=== PATIENT | female | born 1950 | race African-American/Black ===

== ENCOUNTER 2016-08-22 13:29 | Inpatient (IN) | payer OTHER ==
[~2016-08-22] VITALS: Ht 167.6 cm; Wt 41.8 kg
[2016-08-22] MEDS ORDERED: SOD CHLORIDE 0.9% 500 ML IV STA (16:52)
[2016-08-22 17:39] LABS: ADD SCAN DIFF NO
[2016-08-22 17:41] LABS: ABNORMAL IP MESSAGE 1; BASOPHILS % 0.5 % (0.0-2.0); EOSINOPHILS % 0.1 % (0.0-7.0); HEMATOCRIT 30.4 % (37.0-47.0); HEMOGLOBIN 9.5 g/dl (12.0-16.0); LYMPHOCYTES % 23.2 % (15.0-51.0); MEAN CORPUSCULAR HEMOGLOBIN 28.4 pg (29.0-33.0); MEAN CORPUSCULAR HGB CONC 31.3 g/dl (32.0-37.0); MEAN PLATELET VOLUME 8.8 fl (7.4-10.4); MONOCYTE # 0.5 10^3/ul (0.3-0.9); MONOCYTES % 6.1 % (0.0-11.0); NEUTROPHIL # 5.8 10^3/ul (1.6-7.5); NEUTROPHILS % 67.6 % (39.0-77.0); NUCLEATED RED BLOOD CELLS # 0.2 10^3/ul (0.0-0.0); NUCLEATED RED BLOOD CELLS% 2.6 /100WBC (0.0-0.0); PLATELET COUNT 428 10^3/UL (140-415); RED BLOOD COUNT 3.34 10^6/ul (4.20-5.40); RED CELL DISTRIBUTION WIDTH 25.2 % (11.5-14.5); WHITE BLOOD COUNT 8.5 10^3/ul (4.8-10.8)
--- NOTE | 2016-08-22 17:43 | RADRPT ---
PROCEDURE: Chest x-ray CLINICAL INDICATION: Syncope TECHNIQUE: Chest single view COMPARISON: None FINDINGS: There is complete whiteout of the right hemithorax likely reflecting large right pleural effusion wi th collapse of the right lung. There is mass effect and displacement mediastinal structures to the left. Left lung is normally expanded. Left lung is clear. Left costophrenic angle sharp. Pulmona ry vessels normal in caliber IMPRESSION: 1. Complete opacification right hemithorax likely reflecting large right pleural effusion with angelo apse of the right lung. 2. Left lung normally expanded RPTAT: HH .Sergio Muse MD, MD Date Time Electronically viewed and signed by .Sergio Muse MD, MD on 08/22/2016 17:43 .W/
[2016-08-22 17:51] LABS: INR 0.97; PROTIME 12.9 Sec (12.2-14.2)
[2016-08-22 17:52] LABS: PARTIAL THROMBOPLASTIN TIME 28.6 Sec (25.0-35.0)
[2016-08-22 17:54] LABS: ALBUMIN 3.3 g/dl (3.3-4.9); CHLORIDE 101 mmol/L (97-110)
[2016-08-22 17:55] LABS: POTASSIUM 3.9 mmol/L (3.5-5.1); SODIUM 141 mmol/L (135-144)
[2016-08-22 17:57] LABS: ALBUMIN/GLOBULIN RATIO 0.97; ALKALINE PHOSPHATASE 1040 IU/L (42-121); ANION GAP 18 (8-16); ASPARTATE AMINO TRANSFERASE 48 IU/L (15-46); BILIRUBIN,INDIRECT 0.2 mg/dl (0-1.1); BILIRUBIN,TOTAL 0.2 mg/dl (0.2-1.3); BLOOD UREA NITROGEN 13 mg/dl (7-20); CARBON DIOXIDE 26 mmol/L (21-31); GLUCOSE 90 mg/dl (70-220); TOTAL PROTEIN 6.7 g/dl (6.1-8.1)
[2016-08-22 17:58] LABS: ALANINE AMINOTRANSFERASE 17 IU/L (13-69); CALCIUM 10.4 mg/dl (8.4-10.2)
[2016-08-22 18:12] LABS: TROPONIN-I < 0.012 ng/ml (0.00-0.12)
--- NOTE | 2016-08-22 18:47 | ERA ---
ER Documentation Chief Complaint Date/Time DATE: 08/22/16 TIME: 18:42 Chief Complaint Pt with generalized weakness and decreased appetite 1 month. HPI 65-year-old female with no known past medical history presenting with generalized weakness. She states that over the past month she has felt progressively weaker, where she is unable to get of bed. For the past week she has felt some shortness of breath at rest and has had a productive cough with whitish sputum. She denies any associated fevers, chills, chest pain, hemoptysis, abdominal pain, nausea, vomiting, diarrhea. ROS All systems reviewed and are negative except as per history of present illness. Medications Home Meds No Active Prescriptions or Reported Meds Allergies Allergies: Coded Allergies: No Known Allergy (Unverified , 08/22/16) PMhx/Soc Medical and Surgical Hx: pt denies Medical Hx, pt denies Surgical Hx Hx Alcohol Use: Yes (Quit 1 year ago) Hx Substance Use: No Hx Tobacco Use: No Smoking Status: Former smoker FmHx Family History: No diabetes Physical Exam Vitals Vital Signs Date Time Temp Pulse Resp B/P Pulse Ox O2 Delivery O2 Flow Rate FiO2 08/22/16 20:00 97.9 92 28 128/86 98 Nasal Cannula 3.0 08/22/16 13:42 97.9 98 20 121/81 95 Physical Exam Const: Cachectic, Head: Atraumatic Eyes: Normal Conjunctiva ENT: Normal External Ears, Nose and Mouth. Dry mucous membranes Neck: Full range of motion. No lymphadenopathy. No meningismus. Resp: Clear to auscultation bilaterally, diminished breath sounds on the right, no rales, wheezing, rhonchi Cardio: Regular rate and rhythm, no murmurs Abd: Firm, non tender, non distended. No palpable masses. Normal bowel sounds Skin: No petechiae or rashes Back: No midline or flank tenderness Ext: No cyanosis, or edema. Very thin extremities Neur: Awake and alert and oriented 3, cranial nerves intact, strength and sensations intact in all 4 extremities, however there is poor effort on strength testing Psych: Normal Mood and Affect Result Diagram: 08/22/16 1730 08/22/16 1730 Results 24 hrs Laboratory Tests Test 08/22/16 17:20 08/22/16 17:30 Ammonia < 9umol/l Activated Partial Thromboplast Time 28.6Sec Alanine Aminotransferase (ALT/SGPT) 17IU/L Albumin 3.3g/dl Albumin/Globulin Ratio 0.97 Alkaline Phosphatase 1040IU/L Anion Gap 18 Aspartate Amino Transf (AST/SGOT) 48IU/L Basophils # 0.010^3/ul Basophils % 0.5% Blood Urea Nitrogen 13mg/dl Calcium Level 10.4mg/dl Carbon Dioxide Level 26mmol/L Chloride Level 101mmol/L Creatinine 0.50mg/dl Direct Bilirubin 0.00mg/dl Eosinophils # 0.010^3/ul Eosinophils % 0.1% Globulin 3.40g/dl Glucose Level 90mg/dl Hematocrit 30.4% Hemoglobin 9.5g/dl INR International Normalized Ratio 0.97 Indirect Bilirubin 0.2mg/dl Lymphocytes # 2.010^3/ul Lymphocytes % 23.2% Mean Corpuscular Hemoglobin 28.4pg Mean Corpuscular Hemoglobin Concent 31.3g/dl Mean Corpuscular Volume 91.0fl Mean Platelet Volume 8.8fl Monocytes # 0.510^3/ul Monocytes % 6.1% Neutrophils # 5.810^3/ul Neutrophils % 67.6% Nucleated Red Blood Cells # 0.210^3/ul Nucleated Red Blood Cells % 2.6/100WBC Platelet Count 62035^3/UL Potassium Level 3.9mmol/L Prothrombin Time 12.9Sec Prothrombin Time Ratio 1.0 Red Blood Count 3.3410^6/ul Red Cell Distribution Width 25.2% Sodium Level 141mmol/L Total Bilirubin 0.2mg/dl Total Protein 6.7g/dl Troponin I < 0.012ng/ml White Blood Count 8.510^3/ul Current Medications Medications (Trade) Dose Ordered Sig/Abiel Route PRN Reason Start Time Stop Time Status Last Admin Dose Admin Sodium Chloride (NS) 500 ml @ 500 mls/hr Q1H STAT IV 08/22/16 16:52 08/22/16 17:51 DC 08/22/16 17:45 Ondansetron HCl (Zofran Inj) 4 mg ER BRIDGE PRN IV NAUSEA AND/OR VOMITING 08/22/16 19:30 08/23/16 19:29 Acetaminophen (Tylenol Tab) 650 mg ER BRIDGE PRN PO MILD PAIN/FEVER 08/22/16 19:30 08/23/16 19:29 Procedures/MDM EKG: Rate/Rhythm: Normal sinus rhythm at 90 bpm QRS, ST, T-waves: Right axis deviation, anteroseptal Q waves, No changes consistent w/ acute ischemia Impression: No evidence of ischemia or arrhythmia Chest XRay per Radiology: 1. Complete opacification right hemithorax likely reflecting large right pleural effusion with collapse of the right lung. 2. Left lung normally expanded RPTAT: HH .Sergio Muse MD, MD Date Time Electronically viewed and signed by .Sergio Muse MD, MD on 08/22/2016 17:43 Labs were notable for anemia, elevated platelets, and significantly elevated alkaline phosphatase. Patient's presentation and workup is concerning for right-sided pleural effusion that is possibly related to her metastatic malignancy. She is hemodynamically stable with a normal oxygen saturation on room air. Emergent thoracentesis is not indicated at this time. There is no evidence of fluid overload, acute bacterial infection, or sepsis on my exam. Patient will need drainage of her right pleural effusion and further workup. She is not stable for discharge at this time. I spoke with the patient regarding her results and she agreed with the plan for admission. I will defer further workup to the inpatient team. Accepting Care Team: Current data and ongoing care discussed. Time: Time of admission Primary Provider: Vini Consulting: none Outstanding Data: none Departure Diagnosis: Primary Impression: Acute weakness Additional Impressions: Dyspnea Qualified Code: R06.00 - Dyspnea, unspecified type Pleural effusion on right Anemia Condition: Serious KESHA HEDRICK MD Aug 22, 2016 18:47
[2016-08-22] MEDS ORDERED: ONDANSETRON 4 MG INJ IV PRN ×2 (19:30→21:00)
[2016-08-22] MEDS ORDERED: ACETAMINOPHEN 325 MG TAB PO PRN ×2 (19:30→21:00)
[2016-08-22 20:00] VITALS: TEMP 97.9
[2016-08-22] MEDS ORDERED: morphine 4 MG/ML VIAL IV PRN (21:00)
[2016-08-22 22:10] VITALS: BP 120/75; PULSE 91; RESP 20; BMI 13.5
[2016-08-22 22:15] VITALS: Ht 167.6 cm; Wt 41.8 kg
[2016-08-22 23:02] VITALS: BP 120/75; RESP 20
[2016-08-23 05:42] LABS: ADD SCAN DIFF NO
[2016-08-23 06:13] LABS: ABNORMAL IP MESSAGE 1; BASOPHILS % 0.4 % (0.0-2.0); EOSINOPHILS % 0.1 % (0.0-7.0); HEMATOCRIT 29.4 % (37.0-47.0); HEMOGLOBIN 9.1 g/dl (12.0-16.0); LYMPHOCYTES # 1.6 10^3/ul (0.8-2.9); LYMPHOCYTES % 21.3 % (15.0-51.0); MEAN CORPUSCULAR HEMOGLOBIN 28.3 pg (29.0-33.0); MEAN CORPUSCULAR VOLUME 91.6 fl (82.0-101.0); MEAN PLATELET VOLUME 9.3 fl (7.4-10.4); MONOCYTE # 0.5 10^3/ul (0.3-0.9); MONOCYTES % 6.4 % (0.0-11.0); NEUTROPHIL # 5.2 10^3/ul (1.6-7.5); NUCLEATED RED BLOOD CELLS # 0.2 10^3/ul (0.0-0.0); NUCLEATED RED BLOOD CELLS% 2.5 /100WBC (0.0-0.0); PLATELET COUNT 395 10^3/UL (140-415); RED BLOOD COUNT 3.21 10^6/ul (4.20-5.40); RED CELL DISTRIBUTION WIDTH 25.4 % (11.5-14.5); WHITE BLOOD COUNT 7.5 10^3/ul (4.8-10.8)
[2016-08-23 06:40] LABS: IRON 75 ug/dl (35-150)
[2016-08-23 06:50] LABS: TOTAL IRON BINDING CAPACITY 225 ug/dl (241-421)
[2016-08-23 07:30] LABS: FOLATE 10.6 ng/ml (2.8-20.0)
[2016-08-23 07:42] LABS: POTASSIUM 4.3 mmol/L (3.5-5.1)
[2016-08-23 07:44] LABS: BILIRUBIN,INDIRECT 0.1 mg/dl (0-1.1); BILIRUBIN,TOTAL 0.1 mg/dl (0.2-1.3); CREATININE 0.42 mg/dl (0.44-1.00)
[2016-08-23 07:45] LABS: ALBUMIN/GLOBULIN RATIO 1.03; CALCIUM 9.8 mg/dl (8.4-10.2); TOTAL PROTEIN 5.9 g/dl (6.1-8.1)
[2016-08-23 07:55] VITALS: BP 102/68; RESP 16
--- NOTE | 2016-08-23 07:57 | HP ---
DATE OF ADMISSION: 08/22/2016 CHIEF COMPLAINT: Weakness. HISTORY OF PRESENT ILLNESS: Ms. Syed presents to the emergency room at [facility] with dev eloped worsening weakness which she has been having progressively over the last 1 week or so. She s tates that she had previously been able to walk around the house but over the last week, she has bee n having increasing difficulty getting up, standing up and walking to the bed. Out of bed, she had previously been able to dress and bathe herself, but now requires assistance with these things. Ass ociated with this is difficulty with shortness of breath which she states has been also for approxim ately 1 week. In addition, the patient states that she has been having anorexia and not eating and significant weight loss over the last 6 to 12 months. PAST MEDICAL HISTORY: None known. MEDICATIONS: As an outpatient nil. ALLERGIES: NONE KNOWN. SOCIAL HISTORY: The patient lives at home with her daughter in [place]. Former smoker. Does not drink alcohol, quit approximately 1 year ago. Denies illicit drug use. FAMILY HISTORY: Noncontributory. REVIEW OF SYSTEMS: Five systems reviewed and found not to be revealing other than as given above. PHYSICAL EXAMINATION: VITAL SIGNS: Blood pressure is 120/75, pulse rate 86, respirations 20, temperature is 97.9. GENERAL: Cachectic woman, moderate respiratory distress. HEENT: Normocephalic, atraumatic without scleral icterus, perioral cyanosis. Mucous membrane s are moist. NECK: Soft and supple without masses. No evidence of jugular venous distention or carotid bruits. CHEST: Clear to auscultation and percussion. Diminished breath sounds on the entire right side, re latively clear on the left. HEART: Regular rate and rhythm, S1-S2, no added sounds. ABDOMEN: Soft, nontender. There is a firm right lower quadrant abdominal mass. EXTREMITIES: Without clubbing, cyanosis, or edema. There is moderate leg weakness. SKIN: Without rashes. NEUROLOGIC: Cranial nerves III through XII are intact. Tone, power and coordination intact times b oth arms. There is approximately 4+ to 5- power in both legs. Skin is without rashes. LABORATORY STUDIES: Reveal hemoglobin 9.5 g/dL, white count of 8500, platelets of 428,000. INR is 0.97, sodium 141, potassium 3.9, chloride 101, bicarbonate 26, BUN 13, creatinine 0.5, glucose 90, a lbumin 3.3, total protein 6.7, total calcium 10.4, AST 48, ALT 17, total bilirubin 0.2, alkaline jael sphatase 1040. Chest x-ray reveals a large right-sided pleural effusion. ASSESSMENT AND PLAN: 1. Pulmonary: The patient with large right pleural effusion of unclear etiology, though I suspect malignancy. Plan to obtain a diagnostic and therapeutic thoracentesis. Follow up by CT scan of [address] to further evaluate. 2. Gastrointestinal: Patient with right lower quadrant abdominal mass, unclear etiology, possibly malignant. Await CT scan of abdomen and pelvis to further clarify. 3. Leg weakness, possibly related to anorexia in light of overwhelming Cachexia noted. Will plan t o obtain nutritional industries including iron, B12, folate and dietary evaluation. 4. Prophylaxis with TEDs. Dictated By: EDDIE GARCIA MD RER/NTS Conf#: [id number] DID#: [id number]
[2016-08-23] MEDS: FAMOTIDINE 20 MG TAB PO SCH ×2 (11:00→21:33)
--- NOTE | 2016-08-23 11:02 | PN ---
Date/Time of Note Date/Time of Note DATE: 08/23/16 TIME: 10:49 Assessment/Plan VTE Prophylaxis VTE Prophylaxis Intervention: SCD's Lines/Catheters IV Catheter Type (from Nrs): Saline Lock Assessment/Plan Assessment/Plan 65 yo female with: 1. Large right pleural effusion along with abdominal mass and cachexia and recent significant weight loss concerning for malignant and possibly with underlying mass Continue O2 support for dyspnea. Right thoracentesis, CT Chest/abdo/pelvis pending 2. Right lower quadrant abdominal fullness/mass on exam, unclear etiology, possibly malignant. Follow up CT abdomen and pelvis to further evaluate. 3. Generalized weakness, cachexia. Dietary consult and follow up on iron, B12 , folate levels. Prophylaxis: Pepcid for GI ppx and SCDs for DVT ppx. Disposition: Follow up CT results and pathology from pleural fluid Subjective 24 Hr Interval Summary Free Text/Dictation Patient remains dyspneic with labored breathing and dyspnea with speech, on 2 L NC sating 95% Awaiting thoracentesis, CT C/A/P this AM Exam/Review of Systems Vital Signs Vitals Vital Signs Date Time Temp Pulse Resp B/P Pulse Ox O2 Delivery O2 Flow Rate FiO2 08/23/16 07:55 98.0 88 16 102/68 96 08/22/16 22:10 Nasal Cannula 2.0 Intake and Output 08/22/16 08/22/16 08/23/16 15:00 23:00 07:00 Intake Total 200 ml Balance 200 ml Exam Constitutional: alert, frail, oriented, other (cachectic ) Respiratory: diminished breath sounds (right hemithorax ), labored breathing, other (Left lung clear but decreased breath sounds right hemithorax ) Cardiovascular: nl pulses, other, regular rate and rhythm Gastrointestinal: mass (right LQ fullness ), soft Musculoskeletal: other (cachectic ) Extremities: normal pulses, other (no edema, clubbing or cyanosis ) Neurological: BASKET OPERATOR II-XII intact, lethargic, nl mental status, other ( generalized weakness ) Results Result Diagram: 08/23/16 0436 08/23/16 0436 Results 24 hrs Laboratory Tests Test 08/22/16 17:20 08/22/16 17:30 08/23/16 04:36 08/23/16 04:50 Ammonia < 9 L Activated Partial Thromboplast Time 28.6 Alanine Aminotransferase (ALT/SGPT) 17 22 Albumin 3.3 3.0 L Albumin/Globulin Ratio 0.97 1.03 Alkaline Phosphatase 1040 H 973 H Anion Gap 18 H 16 Aspartate Amino Transf (AST/SGOT) 48 H 47 H Basophils # 0.0 0.0 Basophils % 0.5 0.4 Blood Urea Nitrogen 13 12 Calcium Level 10.4 H 9.8 Carbon Dioxide Level 26 25 Chloride Level 101 103 Creatinine 0.50 0.42 L Direct Bilirubin 0.00 0.00 Eosinophils # 0.0 0.0 Eosinophils % 0.1 0.1 Globulin 3.40 H 2.90 Glucose Level 90 79 Hematocrit 30.4 L 29.4 L Hemoglobin 9.5 L 9.1 L INR International Normalized Ratio 0.97 Indirect Bilirubin 0.2 0.1 Lymphocytes # 2.0 1.6 Lymphocytes % 23.2 21.3 Mean Corpuscular Hemoglobin 28.4 L 28.3 L Mean Corpuscular Hemoglobin Concent 31.3 L 31.0 L Mean Corpuscular Volume 91.0 91.6 Mean Platelet Volume 8.8 9.3 Monocytes # 0.5 0.5 Monocytes % 6.1 6.4 Neutrophils # 5.8 5.2 Neutrophils % 67.6 69.0 Nucleated Red Blood Cells # 0.2 H 0.2 H Nucleated Red Blood Cells % 2.6 H 2.5 H Platelet Count 428 H 395 Potassium Level 3.9 4.3 Prothrombin Time 12.9 Prothrombin Time Ratio 1.0 Red Blood Count 3.34 L 3.21 L Red Cell Distribution Width 25.2 H 25.4 H Sodium Level 141 140 Total Bilirubin 0.2 0.1 L Total Protein 6.7 5.9 L Troponin I < 0.012 White Blood Count 8.5 7.5 Amylase Level 42 Iron Level 75 Lactate Dehydrogenase 753 H Percent Iron Saturation 33 Total Iron Binding Capacity 225 L Folate 10.6 Vitamin B12 Level Pending Medications Medications Current Medications Acetaminophen (Tylenol Tab) 650 mg Q4H PRN PO pain/fever; Start 08/22/16 at 21: 00 Morphine Sulfate (morphine) 4 mg Q4H PRN IV pain; Start 08/22/16 at 21:00 Ondansetron HCl (Zofran Inj) 4 mg Q4H PRN IV nausea; Start 08/22/16 at 21:00 EARLENE LEWIS Aug 23, 2016 10:59
[2016-08-23] MEDS ORDERED: LIDOCAINE 1% (MPF) 5 ML VIAL ONE (12:26)
--- NOTE | 2016-08-23 12:27 | RADRPT ---
PROCEDURE: US guided right thoracentesis. CLINICAL INDICATION: Shortness of breath. Right pleural effusion. TECHNIQUE: Prior to the procedure, informed consent was obtained. The risks, benefits, and alternatives were e xplained to the patient or the patient's family, including but not limited to bleeding, infection, p ain, visceral or vascular damage, shock, pneumothorax, chest tube placement, air embolism, and . The patient or the patient's family understood the risks and the alternatives and wished to proce ed with the study. Informed written consent was obtained. A procedural pause was performed. The patient's name, date of , and procedure to be performed were verified. Ultrasound of the right hemithorax was performed in the axial and sagittal planes. A right pleural e ffusion is noted. Utilizing ultrasound guidance, optimal location for entry to the pleural cavity wa s ascertained. The overlying skin was prepped and draped in the usual sterile fashion. Approximate ly 10 ml of 1% Xylocaine was injected locally for pain control. Using ultrasound guidance, a 5-Fren Yueh catheter was introduced into the right pleural space without difficulty. Fluid was aspirated . COMPARISON: None. FINDINGS: Initial ultrasound demonstrates fluid in the right pleural space. Approximately 1.55 liters of sero us fluid was aspirated and sent to the laboratory. IMPRESSION: 1. Satisfactory ultrasound-guided right thoracentesis. RPTAT: QQ .Ruslan Munoz MD, Date Time Electronically viewed and signed by .Ruslan Munoz MD, on 08/23/2016 12:27 .R/
--- NOTE | 2016-08-23 12:34 | RADRPT ---
PROCEDURE: XR Chest. CLINICAL INDICATION: Shortness of breath. Post right thoracentesis. TECHNIQUE: Single frontal view. COMPARISON: 08/22/2016. FINDINGS: There is a large right pleural effusion, smaller than seen previously. There is aeration of the rig ht upper lung. The left lung is clear. There is shift of the mediastinum to the left. There is no left pleural effusion. The heart size is normal. There is no pneumothorax. IMPRESSION: 1. No pneumothorax following right thoracentesis. 2. Large right pleural effusion which is smaller than seen previously. 3. Aeration of the right upper lung is now visualized. RPTAT: QQ .Ruslan Munoz MD, MD Date Time Electronically viewed and signed by .Ruslan Munoz MD, on 08/23/2016 12:34 .R/
[2016-08-23] MEDS ORDERED: SOD CHLORIDE 0.9% 100 ML ONE (13:05)
[2016-08-23] MEDS ORDERED: IODIXANOL LOCM 100 ML BTL ONE (13:05)
--- NOTE | 2016-08-23 13:54 | RADRPT ---
PROCEDURE: CT chest, abdomen and pelvis with intravenous contrast. CLINICAL INDICATION: Pleural effusion. Weakness. Anorexia. TECHNIQUE: Following intravenous contrast, spiral CT of the chest, abdomen pelvis was performed an d is reconstructed at 2.5 mm contiguous axial intervals from the thoracic inlet to the inferior pubi c rami. Computer reformatted coronal and sagittal images are included. CT D I 5 millicurie Dose 354 millicurie per centimeter COMPARISON: None. FINDINGS: Chest - Noted is a large right pleural effusion with complete collapse of the right middle lobe, the basal s egments of the right lower lobe and the anterior segment of the right upper lobe. There is dense co nsolidation in the non collapsed right lung. Noted is a moderate-sized left pleural effusion with c ompressive atelectasis in the dependent portion of the left lung. There are multiple sub centimeter solid nodules in the left lung, some of which demonstrate calcification. No pneumothorax is seen. No hilar or mediastinal adenopathy or masses present. Thoracic aorta is normal. No pleural mass i s visualized. There is asymmetric enlargement of the right breast with suggestion of a large mass a nd associated skin thickening. No axillary, supraclavicular or internal mammary chain adenopathy is seen. There are diffuse mixed lytic and blastic lesions throughout the spine and ribs. No comprom ise is seen of the vertebral canal. Abdomen and pelvis - The liver is enlarged and demonstrates coarse heterogeneous attenuation throughout the right lobe. This may represent evidence of infiltrating mass. Multiple hepatic cysts are present. No ductal di latation is identified. The portal vein is open. No splenic, adrenal or pancreatic abnormality is identified. No gallstones are seen. The kidneys enhance symmetrically. No hydronephrosis, calculu s or masses present. The ureters are of normal course and caliber with no stone. No bladder masses stone is present. Noted is an enlarged calcified fibroid uterus. There are bulky noncalcified mix ed attenuation solid masses are rising out of the pelvis measuring up to 10 cm in diameter. These d isplace the bowel superiorly. No bowel mass or obstruction is identified. There are diffuse lytic and blastic metastases present. Noted is generalized anasarca. IMPRESSION: Diffuse bony metastases. Multiple left lung nodules compatible with metastatic disease. Question p rimary right breast cancer. Enlarged fibroid uterus. Multiple large solid pelvic masses. Large right pleural effusion with near complete collapse right lung. Dense consolidation of the rem aining non collapsed right pulmonary segments. Left pleural effusion with compressive atelectasis. Anasarca. .Shane Chambers MD, Date Time Electronically viewed and signed by .Shane Chambers MD, on 08/23/2016 13:54 .A/
[2016-08-23 14:04] LABS: FLUID GLUCOSE 74 mg/dl; FLUID TYPE PLEURAL FLUID
[2016-08-23 14:05] LABS: FLUID AMYLASE < 30 U/L; FLUID TYPE PLEURAL FLUID
[2016-08-23 14:06] LABS: FLUID TOTAL PROTEIN 3.8 g/dl; FLUID TYPE PLEURAL FLUID
[2016-08-23 14:28] LABS: FLUID APPEARANCE HAZY; FLUID TYPE PLEURAL
[2016-08-23 14:29] LABS: FLUID RBC EST 1+; FLUID WBC'S 73 /cmm
[2016-08-23 14:30] LABS: FLUID LYMPHOCYTES 73 %; FLUID MONOCYTES 15 %; FLUID NEUTROPHILS 12 %
[2016-08-24 05:36] LABS: POTASSIUM 4.1 mmol/L (3.5-5.1)
[2016-08-24 05:38] LABS: CREATININE 0.46 mg/dl (0.44-1.00)
[2016-08-24 05:39] LABS: ALBUMIN/GLOBULIN RATIO 0.93; BILIRUBIN,INDIRECT 0.1 mg/dl (0-1.1); BILIRUBIN,TOTAL 0.1 mg/dl (0.2-1.3); CALCIUM 9.8 mg/dl (8.4-10.2); TOTAL PROTEIN 6.2 g/dl (6.1-8.1)
[2016-08-24 06:15] LABS: PHOSPHORUS 3.3 mg/dl (2.5-4.9)
[2016-08-24 07:59] VITALS: BP 116/73; RESP 18
[2016-08-24] MEDS: FAMOTIDINE 20 MG TAB PO SCH ×2 (09:00→21:00)
--- NOTE | 2016-08-24 10:24 | PN ---
Date/Time of Note Date/Time of Note DATE: 08/24/16 TIME: 10:06 Assessment/Plan VTE Prophylaxis VTE Prophylaxis Intervention: SCD's Lines/Catheters IV [facility] Saline Lock Assessment/Plan Assessment/Plan 65 yo female with: 1. Large right pleural effusion along with multiple pelvic masses and recurrent pleural effusion post thoracentesis with removal of 1.[address] Munoz and plan for pelvic lesion biopsy today, patient reluctant but willing now Follow up cytology from pleural fluid Continue O2 support for dyspnea. Discussed with Pulmonary, will need Pleurx valve likely but patient may decline. 2. Pelvic Masses displacing bowels but no obstruction 3. Generalized weakness, cachexia, bone lesions, pelvic masses and recurring right pleural effusion Need biopsy for further diagnosis and prognosis Follow up dietary consult reclamations. Prophylaxis: Pepcid for GI ppx and SCDs for DVT ppx. Disposition: Follow up pathology from pleural fluid and pelvic lesion biopsy. Subjective 24 Hr Interval Summary Free Text/Dictation Patient cachectic and remains stable Due for Biopsy of pelvic lesion today S/p thoracentesis with removal of 1.5 L from right Lung and recurrence of effusion Exam/Review of Systems Vital Signs Vitals Vital Signs Date Time Temp Pulse Resp B/P Pulse Ox O2 Delivery O2 Flow Rate FiO2 08/24/16 07:59 98.1 104 18 116/73 96 08/23/16 20:00 Nasal Cannula 2.0 Intake and Output 08/23/16 08/23/16 08/24/16 15:00 23:00 07:00 Intake Total 200 ml Balance 200 ml Exam Constitutional: alert, oriented, other (cachectic ) Respiratory: clear to auscultation (left lung ), diminished breath sounds ( right lung ) Cardiovascular: nl pulses, regular rate and rhythm Gastrointestinal: non-tender, other, soft Musculoskeletal: nl extremities to inspection Extremities: normal pulses, other (no edema, clubbing or cyanosis ) Results Result Diagram: 08/23/16 0436 08/24/16 0450 Results 24 hrs Laboratory Tests Test 08/23/16 12:00 08/24/16 04:50 Body Fluid Amylase < 30 Body Fluid Appearance HAZY Body Fluid Color YELLOW Body Fluid Glucose 74 Body Fluid Lactate Dehydrogenase Body Fluid Lymphocytes (%) 73 Body Fluid Monocytes % 15 Body Fluid Neutrophils % 12 Body Fluid RBC 1+ Body Fluid Total Protein 3.8 Body Fluid Type PLEURAL FLUID Body Fluid Volume 1000.0 Body Fluid WBC 73 Alanine Aminotransferase (ALT/SGPT) 16 Albumin 3.0 L Albumin/Globulin Ratio 0.93 Alkaline Phosphatase 988 H Anion Gap 17 H Aspartate Amino Transf (AST/SGOT) 47 H Blood Urea Nitrogen 13 Calcium Level 9.8 Carbon Dioxide Level 24 Chloride Level 105 Creatinine 0.46 Direct Bilirubin 0.00 Globulin 3.20 Glucose Level 93 Indirect Bilirubin 0.1 Magnesium Level 2.0 Phosphorus Level 3.3 Potassium Level 4.1 Sodium Level 142 Total Bilirubin 0.1 L Total Protein 6.2 Medications Medications Current Medications Acetaminophen (Tylenol Tab) 650 mg Q4H PRN PO pain/fever; Start 08/22/16 at 21: 00 Morphine Sulfate (morphine) 4 mg Q4H PRN IV pain Last administered on 17:25; Admin Dose 4 MG; Start 08/22/16 at 21:00 Ondansetron HCl (Zofran Inj) 4 mg Q4H PRN IV nausea; Start 08/22/16 at 21:00 Famotidine (Pepcid) 20 mg BID PO Last administered on 08/23/16 21:33; Admin Dose 20 MG; Start 08/23/16 at 11:00 EARLENE LEWIS Aug 24, 2016 10:16
[2016-08-24] MEDS ORDERED: MIDAZOLAM 1 MG/ML 2 ML INJ ONE (10:39)
[2016-08-24] MEDS ORDERED: FENTAnyl 50 MCG/ML VIAL ONE (10:39)
[2016-08-24] MEDS ORDERED: LIDOCAINE 1% (MDV) 20 ML INJ ONE (10:39)
[2016-08-24] MEDS ORDERED: DIPHENHYDRAMINE 50 MG INJ ONE (10:39)
--- NOTE | 2016-08-24 15:14 | CONS ---
Date/Time of Note Date/Time of Note DATE: 08/24/16 TIME: 15:09 Assessment/Plan Assessment/Plan Additional Assessment/Plan Chest x-ray was reviewed from yesterday which is showing almost complete whiteout of the right side CT of the abdomen findings as mentioned above. Assessment recommendations; patient admitted with severe weight loss with a large right pleural effusion as well as multiple abdominal masses. Findings are highly consistent with widely metastatic malignancy of some sort. 2. Patient refusing to have her breast examined. However according to the patient's daughters as well as the patient herself, she has noticed some changes in the right breast. This possibly could be related to metastatic breast cancer. 3. Status post right thoracentesis. 1.5 L of fluid was removed. Cytology is pending. Next Continue current supportive care. Prognosis appears extremely poor. Hospice would likely be a viable option. Consultation Date/Type/Reason Admit Date/Time Aug 22, 2016 at 19:11 Date of Consultation: Aug 24, 2016 Type of Consultation: Pulmonary Reason for Consultation Pulmonary consultation obtained for evaluation of large right pleural effusion. Next History presenting illness; patient is a 65-year-old F [place] lady who came into the hospital yesterday with a several week history of weight loss, shortness of breath. He also been having some cough with no sputum production. Upon evaluation had a chest x-ray was done which showed a very large right pleural effusion subsequently CT of the abdomen was done which is confirming the same however multiple bony lesions are identified which are highly consistent with widely metastatic malignancy of some kind. Also multiple intrapelvic masses have been identified as well as well as changes in right breast. Past medical history; is none Medications; were reviewed. Allergies; are none. Social history; she has a remote history of scant smoking. Most of alcohol or drug abuse. Family history; patient has 3 daughters. 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 Review of systems; denies any seizures, headache, visual changes any postnasal drip sinus symptoms hearing loss. Denies any dysphagia denies any chest pain, angina. Denies any wheezing. Complains of shortness of breath which significant improvement after thoracentesis. Denies any hemoptysis or sputum production. Comes of cough. Denies any abdominal pain. But is complaining of pelvic discomfort. Complains of constipation. Denies any urinary symptoms. Patient has lost significant weight over the last couple of months. Denies any skin changes. General exam; elderly woman appears quite emaciated. Awake and alert. Gently in no distress. Social History Smoking Status: Former smoker Exam/Review of Systems Vital Signs Vitals Vital Signs Date Time Temp Pulse Resp B/P Pulse Ox O2 Delivery O2 Flow Rate FiO2 08/24/16 07:59 98.1 104 18 116/73 96 08/23/16 20:00 Nasal Cannula 2.0 Intake and Output 08/23/16 08/23/16 08/24/16 15:00 23:00 07:00 Intake Total 200 ml Balance 200 ml Exam H EENT examination; supple neck, no JVD. No lymphadenopathy. Midline trachea. No cervical adenopathy. Patient had multiple carious teeth. Pupils are midsize and reactive to light bilaterally. Chest examination diminished breath sounds in right lung. Left lung is clear S1 -S2 audible no murmurs regular rhythm . Abdomen exam; multiple subcutaneous masses are felt in the right lower quadrant area, umbilicus is flat, no organomegaly felt bowel sounds audible Extremity exam; no peripheral edema there is no clubbing pulses 1+ bilaterally there is severe muscular wasting over the entire body. RECORDS TECH examination; cranial nerves are grossly intact there is no motor deficit. Results Result Diagram: 08/23/16 0436 08/24/16 0450 Results 24 hrs Laboratory Tests Test 08/24/16 04:50 Sodium Level 142 Potassium Level 4.1 Chloride Level 105 Carbon Dioxide Level 24 Anion Gap 17 H Blood Urea Nitrogen 13 Creatinine 0.46 Glucose Level 93 Calcium Level 9.8 Phosphorus Level 3.3 Magnesium Level 2.0 Total Bilirubin 0.1 L Direct Bilirubin 0.00 Indirect Bilirubin 0.1 Aspartate Amino Transf (AST/SGOT) 47 H Alanine Aminotransferase (ALT/SGPT) 16 Alkaline Phosphatase 988 H Total Protein 6.2 Albumin 3.0 L Globulin 3.20 Albumin/Globulin Ratio 0.93 Medications Medications Current Medications Acetaminophen (Tylenol Tab) 650 mg Q4H PRN PO pain/fever; Start 08/22/16 at 21: 00 Morphine Sulfate (morphine) 4 mg Q4H PRN IV pain Last administered on t 17:25; Admin Dose 4 MG; Start 08/22/16 at 21:00 Ondansetron HCl (Zofran Inj) 4 mg Q4H PRN IV nausea; Start 08/22/16 at 21:00 Famotidine (Pepcid) 20 mg BID PO Last administered on 08/23/16t 21:33; Admin Dose 20 MG; Start 08/23/16 at 11:00 QUYEN GRULLON Aug 24, 2016 15:14
[2016-08-24 19:43] VITALS: BP 88/54; RESP 17
[2016-08-24] MEDS ORDERED: SOD CHLORIDE 0.9% 250 ML IV ONE (21:30)
[2016-08-24] MEDS: GUAIFENESIN 20 MG/ML 5ML CUP PO PRN (21:40)
[2016-08-24] MEDS: SOD CHLORIDE 0.9% 1,000 ML IV SCH (21:41)
[2016-08-24 23:57] VITALS: BP 86/54; RESP 17
[2016-08-25 05:16] LABS: ADD SCAN DIFF NO
[2016-08-25 05:19] LABS: ABNORMAL IP MESSAGE 1; BASOPHILS % 0.2 % (0.0-2.0); EOSINOPHILS % 0.1 % (0.0-7.0); HEMATOCRIT 33.2 % (37.0-47.0); HEMOGLOBIN 10.2 g/dl (12.0-16.0); LYMPHOCYTES # 1.6 10^3/ul (0.8-2.9); LYMPHOCYTES % 18.1 % (15.0-51.0); MEAN CORPUSCULAR HEMOGLOBIN 27.9 pg (29.0-33.0); MEAN CORPUSCULAR HGB CONC 30.7 g/dl (32.0-37.0); MEAN CORPUSCULAR VOLUME 90.7 fl (82.0-101.0); MONOCYTE # 0.6 10^3/ul (0.3-0.9); MONOCYTES % 6.9 % (0.0-11.0); NEUTROPHIL # 6.3 10^3/ul (1.6-7.5); NEUTROPHILS % 72.4 % (39.0-77.0); NUCLEATED RED BLOOD CELLS # 0.4 10^3/ul (0.0-0.0); NUCLEATED RED BLOOD CELLS% 4.8 /100WBC (0.0-0.0); PLATELET COUNT 367 10^3/UL (140-415); RED BLOOD COUNT 3.66 10^6/ul (4.20-5.40); RED CELL DISTRIBUTION WIDTH 25.6 % (11.5-14.5); WHITE BLOOD COUNT 8.7 10^3/ul (4.8-10.8)
[2016-08-25 05:27] LABS: CALCIUM 9.7 mg/dl (8.4-10.2); CREATININE 0.48 mg/dl (0.44-1.00)
[2016-08-25 05:29] LABS: PHOSPHORUS 3.2 mg/dl (2.5-4.9)
[2016-08-25 07:47] VITALS: BP 89/58; RESP 20
[2016-08-25] MEDS: COLLAGENASE 30 GM TUBE TOP SCH (09:43)
[2016-08-25] MEDS: FAMOTIDINE 20 MG TAB PO SCH ×2 (09:43→21:00)
[2016-08-25] MEDS: SOD CHLORIDE 0.9% 1,000 ML IV SCH (09:44)
[2016-08-25] MEDS: GUAIFENESIN 20 MG/ML 5ML CUP PO PRN ×2 (09:45→19:44)
[2016-08-25] MEDS ORDERED: ALPRAZOLAM 0.25 MG TAB PO PRN (14:30)
--- NOTE | 2016-08-25 14:54 | PN ---
Date/Time of Note Date/Time of Note DATE: 08/25/16 TIME: 14:37 Assessment/Plan VTE Prophylaxis VTE Prophylaxis Intervention: SCD's Lines/Catheters IV Catheter Type (from Nrs): Peripheral IV Assessment/Plan Assessment/Plan 65 yo female with: 1. Large right pleural effusion along with multiple pelvic masses and recurrent pleural effusion post thoracentesis with removal of 1.55 L Discussed with patient and her daughters multiple times over the past 24 hrs, she is still refusing and wants to go home on comfort measures now and hospice consulted Pleural fluid with no malignant cell Continue O2 support for dyspnea. She is refusing Pleurx valve/catheter Appreciate Pulmonary note and recommendations Extremely poor prognosis 2. Pelvic Masses displacing bowels but no obstruction. Likely metastatic malignant carcinoma. 3. Generalized weakness, cachexia, bone lesions, pelvic masses and recurring right pleural effusion all consistent with metastatic malignant carcinoma Refusing diagnostic biopsy but agreeable to comfort care and hospice placement Hospice consult pending for discharge home within 24 hrs Prophylaxis: Pepcid for GI ppx and SCDs for DVT ppx. Disposition: Hospice eval and admit DNR, comfort measures Subjective 24 Hr Interval Summary Free Text/Dictation Patient comfortable currently on 2L NC VSS even if with hypotension After discussion with family and based on patient wishes not to have biopsy, blood draw or any further diagnostic or treatment provided, she agrees to comfort care and hospice placement Hospice consult for home discharge BHARATI Exam/Review of Systems Vital Signs Vitals Vital Signs Date Time Temp Pulse Resp B/P Pulse Ox O2 Delivery O2 Flow Rate FiO2 08/25/16 07:47 98.7 98 20 89/58 97 08/24/16 21:05 Nasal Cannula 2.0 Intake and Output 08/24/16 08/24/16 08/25/16 15:00 23:00 07:00 Intake Total 1050 ml 600 ml Output Total 1000 ml Balance 1050 ml -400 ml Exam Constitutional: alert, frail, oriented, other (cachectic ) Respiratory: diminished breath sounds (right lung ), labored breathing Cardiovascular: nl pulses, regular rate and rhythm Gastrointestinal: non-tender, soft Musculoskeletal: muscle tone (poor ), muscle weakness Extremities: normal pulses, other (no edema, clubbing or cyanosis ) Neurological: CHILDREN'S LIBRARIAN II-XII intact, lethargic, nl mental status, nl speech Results Result Diagram: 08/25/16 0435 08/25/16 0435 Results 24 hrs Laboratory Tests Test 08/25/16 04:35 White Blood Count 8.7 Red Blood Count 3.66 L Hemoglobin 10.2 L Hematocrit 33.2 L Mean Corpuscular Volume 90.7 Mean Corpuscular Hemoglobin 27.9 L Mean Corpuscular Hemoglobin Concent 30.7 L Red Cell Distribution Width 25.6 H Platelet Count 367 Mean Platelet Volume 9.0 Neutrophils % 72.4 Lymphocytes % 18.1 Monocytes % 6.9 Eosinophils % 0.1 Basophils % 0.2 Nucleated Red Blood Cells % 4.8 H Neutrophils # 6.3 Lymphocytes # 1.6 Monocytes # 0.6 Eosinophils # 0.0 Basophils # 0.0 Nucleated Red Blood Cells # 0.4 H Sodium Level 143 Potassium Level 4.0 Chloride Level 106 Carbon Dioxide Level 25 Anion Gap 16 Blood Urea Nitrogen 13 Creatinine 0.48 Glucose Level 105 Calcium Level 9.7 Phosphorus Level 3.2 Magnesium Level 2.0 Medications Medications Current Medications Acetaminophen (Tylenol Tab) 650 mg Q4H PRN PO pain/fever; Start 08/22/16 at 21: 00 Morphine Sulfate (morphine) 4 mg Q4H PRN IV pain Last administered on 17:25; Admin Dose 4 MG; Start 08/22/16 at 21:00 Ondansetron HCl (Zofran Inj) 4 mg Q4H PRN IV nausea; Start 08/22/16 at 21:00 Famotidine (Pepcid) 20 mg BID PO Last administered on 08/25/16 09:43; Admin Dose 20 MG; Start 08/23/16 at 11:00 Collagenase (Santyl) 1 applic DAILY TOP Last administered on 08/25/16 09:43; Admin Dose 1 APPLIC; Start 08/25/16 at 09:00 Guaifenesin 100 mg 100 mg Q6H PRN PO COUGH Last administered on 08/25/16 09:45 ; Admin Dose 100 MG; Start 08/24/16 at 21:30 Sodium Chloride (NS) 1,000 ml @ 75 mls/hr [id number] IV Last administered on 08/25 09:44; Admin Dose 75 MLS/HR; Start 08/24/16 at 21:30 Alprazolam (Xanax) 0.25 mg Q8H PRN PO ANXIETY; Start 08/25/16 at 14:30; Status EARLENE LUTZ Aug 25, 2016 14:47
--- NOTE | 2016-08-25 14:55 | PDOCDIS ---
Discharge Instructions CONDITION Patient Condition: Guarded HOME CARE INSTRUCTIONS: Diet Instructions: Regular ACTIVITY: Activity Restrictions: Slowly Increase Activity FOLLOW UP/APPOINTMENTS Appointments Comfort measures and to follow up with Home hospice EARLENE LEWIS Aug 25, 2016 14:55
[2016-08-25] MEDS ORDERED: ALPR0.254 PO (14:57)
[2016-08-25] MEDS ORDERED: GUAI-637 PO (14:57)
[2016-08-25 19:00] VITALS: BP 90/57; RESP 18
[2016-08-25] MEDS ORDERED: ZOLPIDEM 5 MG TAB PO PRN (20:30)
[2016-08-25] MEDS ORDERED: ALPRAZOLAM 0.25 MG TAB PO ONE (20:30)
[2016-08-26] MEDS: SOD CHLORIDE 0.9% 1,000 ML IV SCH (00:20)
[2016-08-26 07:54] VITALS: BP 100/66
[2016-08-26 07:59] VITALS: RESP 28
[2016-08-26] MEDS: COLLAGENASE 30 GM TUBE TOP SCH (09:00)
[2016-08-26] MEDS: FAMOTIDINE 20 MG TAB PO SCH (09:00)
--- NOTE | 2016-08-26 10:51 | PN ---
Date/Time of Note Date/Time of Note DATE: 08/26/16 TIME: 10:38 Assessment/Plan VTE Prophylaxis VTE Prophylaxis Intervention: SCD's Lines/Catheters IV Catheter Type (from Nrs): Peripheral IV Assessment/Plan Assessment/Plan 65 yo female with: 1. Large right pleural effusion along with multiple pelvic masses and recurrent pleural effusion post thoracentesis with removal of 1.55 L Discussed with patient and her daughters multiple times over the past 24 hrs, she is still refusing and wants to go home on comfort measures now and to go home on hospice today Pleural fluid with no malignant cell Patient refusing all other intervention so far and agrees to comfort measures and hospice placement. Appreciate Pulmonary note and recommendations for hospice Extremely poor prognosis 2. Pelvic Masses displacing bowels but no obstruction. Likely metastatic malignant carcinoma. 3. Generalized weakness, cachexia, bone lesions, pelvic masses and recurring right pleural effusion all consistent with metastatic malignant carcinoma Refusing diagnostic biopsy but agreeable to comfort care and home hospice discharge today with [facility]. Prophylaxis: Pepcid for GI ppx and SCDs for DVT ppx. Disposition: Hospice evaluation and plan for d/c home with hospice today with [facility]. DNR, comfort measures Subjective 24 Hr Interval Summary Free Text/Dictation Patient remains stable, extremely poor prognosis and on comfort measures. Appreciate evaluation by [facility] hospice and patient going home on Hospice today Exam/Review of Systems Vital Signs Vitals Vital Signs Date Time Temp Pulse Resp B/P Pulse Ox O2 Delivery O2 Flow Rate FiO2 08/26/16 07:59 28 08/26/16 07:54 97.3 113 100/66 98 08/25/16 20:00 Nasal Cannula 2.0 Intake and Output 08/25/16 08/25/16 08/26/16 15:00 23:00 07:00 Intake Total 250 ml 525 ml 475 ml Balance 250 ml 525 ml 475 ml Exam Constitutional: alert, frail, oriented, other (bed ridden ) Respiratory: diminished breath sounds (Right lung ), labored breathing (with minimal exertion ) Cardiovascular: nl pulses, regular rate and rhythm Gastrointestinal: non-tender, soft Musculoskeletal: muscle tone (weak ), other (cachectic ) Extremities: normal pulses, other (no edema, clubbing or cyanosis ) Neurological: SENIOR GEOLOGIST II-XII intact, lethargic, nl mental status, nl speech, other (bed ridden mostly ) Results Result Diagram: 08/25/1643408/25/16434 Medications Medications Current Medications Acetaminophen (Tylenol Tab) 650 mg Q4H PRN PO pain/fever; Start 08/22/16 at 21: 00 Morphine Sulfate (morphine) 4 mg Q4H PRN IV pain Last administered on 17:25; Admin Dose 4 MG; Start 08/22/16 at 21:00 Ondansetron HCl (Zofran Inj) 4 mg Q4H PRN IV nausea; Start 08/22/16 at 21:00 Famotidine (Pepcid) 20 mg BID PO Last administered on 08/25/16 09:43; Admin Dose 20 MG; Start 08/23/16 at 11:00 Collagenase (Santyl) 1 applic DAILY TOP Last administered on 08/25/16 09:43; Admin Dose 1 APPLIC; Start 08/25/16 at 09:00 Guaifenesin (Robitussin Liquid Cup) 100 mg Q6H PRN PO COUGH Last administered on 08/25/16 19:44; Admin Dose 100 MG; Start 08/24/16 at 21:30 Alprazolam (Xanax) 0.25 mg Q8H PRN PO ANXIETY Last administered on 08/25/16 15 :16; Admin Dose 0.25 MG; Start 08/25/16 at 14:30 Zolpidem Tartrate (Ambien) 5 mg HS PRN PO INSOMNIA; Start 08/25/16 at 20:30 EARLENE LEWIS Aug 26, 2016 10:50
--- NOTE | 2016-08-26 12:12 | CONS ---
Date/Time of Note Date/Time of Note DATE: 08/26/16 TIME: 12:11 Consult Date/Type/Reason Admit Date/Time Aug 22, 2016 at 19:11 Initial Consult Date 08/24/16 Type of Consultation: Pulmonary Subjective Patient still has moderate respiratory distress this morning Remains relatively comfortable however. Objective Vital Signs Date Time Temp Pulse Resp B/P Pulse Ox O2 Delivery O2 Flow Rate FiO2 08/26/16 08:00 Nasal Cannula 4.0 08/26/16 07:59 28 08/26/16 07:54 97.3 113 100/66 98 Intake and Output 08/25/16 08/25/16 08/26/16 15:00 23:00 07:00 Intake Total 250 ml 525 ml 475 ml Balance 250 ml 525 ml 475 ml Exam GENERAL: Thin cachectic lady VITAL SIGNS: per chart NECK: Supple. No JVD or lymphadenopathy. CARDIAC EXAM: S1, S2. No added sounds or murmurs. CHEST: Diminished air entry bilaterally ABDOMEN: Soft, nontender. No guarding or rebound. EXTREMITIES: No cyanosis, clubbing or edema. NEUROLOGIC: Generalized weakness. No focal deficits. Results/Medications Result Diagram: 08/25/1643408/25/16 0435 Medications Current Medications Acetaminophen (Tylenol Tab) 650 mg Q4H PRN PO pain/fever; Start 08/22/16 at 21: 00 Morphine Sulfate (morphine) 4 mg Q4H PRN IV pain Last administered on 17:25; Admin Dose 4 MG; Start 08/22/16 at 21:00 Ondansetron HCl (Zofran Inj) 4 mg Q4H PRN IV nausea; Start 08/22/16 at 21:00 Famotidine (Pepcid) 20 mg BID PO Last administered on 08/25/16 09:43; Admin Dose 20 MG; Start 08/23/16 at 11:00 Collagenase (Santyl) 1 applic DAILY TOP Last administered on 08/25/16 09:43; Admin Dose 1 APPLIC; Start 08/25/16 at 09:00 Guaifenesin (Robitussin Liquid Cup) 100 mg Q6H PRN PO COUGH Last administered on 08/25/16 19:44; Admin Dose 100 MG; Start 08/24/16 at 21:30 Alprazolam (Xanax) 0.25 mg Q8H PRN PO ANXIETY Last administered on 08/25/16t 15 :16; Admin Dose 0.25 MG; Start 08/25/16 at 14:30 Zolpidem Tartrate (Ambien) 5 mg HS PRN PO INSOMNIA; Start 08/25/16 at 20:30 Assessment/Plan Chief Complaint/Hosp Course Assessment Metastatic disease of unclear primary. Hypoxemic respiratory failure secondary to pleural effusion cytology negative Plan Patient to be discharged home on hospice. Problems: JANICE OSBORNE MD, [facility] Aug 26, 2016 12:12
== END 2016-08-26 16:05 | disposition hospice, home (50) | DRG 186 ==
LOC: E/R 13:29 → MS1 19:11
PROVIDERS: ADMIT Legal Medicine; ATTEND Legal Medicine
PROC: 0W993ZZ Drainage of Right Pleural Cavity, Percutaneous Approach (ICD-10-PCS; principal; 2016-08-23)
DX: J90 Pleural effusion, not elsewhere classified (principal); J96.91 Respiratory failure, unspecified with hypoxia; R64 Cachexia; C79.9 Secondary malignant neoplasm of unspecified site; R63.0 Anorexia; Z68.1 Body mass index [BMI] 19.9 or less, adult; Z87.891 Personal history of nicotine dependence; R06.00 Dyspnea, unspecified; R19.03 Right lower quadrant abdominal swelling, mass and lump; M89.9 Disorder of bone, unspecified; Z66 Do not resuscitate
CPT/HCPCS: 36415; 71010; 71260; 74177; 76942; 80048; 80053; 82140; 82150; 82607; 82746; 82945; 83540; 83615; 83735; 83986; 84100; 84157; 84484; 85025; 85610; 85730; 87070; 87102; 87116; 88104; 88305; 89050; 93005; J1200; J2250; J2270; J3010; J7030; J7040; Q9967